=== PATIENT | female | born 2000 | race Caucasian/White ===

== ENCOUNTER 2020-01-04 14:09 | Emergency (ER) | payer OTHER ==
[~2020-01-04] VITALS: Ht 165.1 cm; Wt 68.0 kg
[~2020-01-04 14:09] MED LIST: ALBU0.0939; IBUP100S69 PO
[2020-01-04 14:15] VITALS: BP 129/86
[2020-01-04 15:14] VITALS: BP 133/80
== END 2020-01-04 15:15 | disposition home or self-care (01) ==
LOC: MED 14:09
DX: S00.93XA Contusion of unspecified part of head, initial encounter (principal); J45.909 Unspecified asthma, uncomplicated; Z79.899 Other long term (current) drug therapy; Y04.2XXA Assault by strike against or bumped into by another person, initial encounter; Y93.89 Activity, other specified; Y92.89 Other specified places as the place of occurrence of the external cause; Y99.8 Other external cause status
CPT/HCPCS: 99282

== ENCOUNTER 2020-08-03 17:10 | Emergency (ER) | payer OTHER ==
[~2020-08-03] VITALS: Ht 170.2 cm; Wt 108.0 kg
[2020-08-03 17:15] VITALS: BP 131/72
--- NOTE | 2020-08-03 17:39 | NUR ---
Patient ambulated to bed 3. RN evaluating the patient at bedside.
--- NOTE | 2020-08-03 17:40 | NUR ---
SRINIVASAN WONG AT BEDSIDE EXAMINING PT
--- NOTE | 2020-08-03 17:53 | NUR ---
LAB AT BEDSIDE
[2020-08-03 18:04] LABS: BASOPHILS # (AUTO) 0.1 K/uL (0.00-0.22); BASOPHILS % (AUTO) 1.1 % (0.0-2.0); EOSINOPHILS # (AUTO) 0.1 K/uL (0-0.4); EOSINOPHILS % (AUTO) 1.6 % (0.0-4.0); HEMATOCRIT 42.9 % (36-48); LYMPHOCYTES # (AUTO) 2.9 K/uL (2.5-16.5); MEAN CORPUSCULAR HEMOGLOBIN 31 pg (27-31); MEAN CORPUSCULAR HGB CONC 35 g/dL (33-37); MEAN CORPUSCULAR VOLUME 89.8 fL (80-94); MONOCYTES # (AUTO) 0.6 K/uL (0.8-1.0); MONOCYTES % (AUTO) 7.6 % (1.7-9.3); NEUTROPHILS # (AUTO) 4.4 K/uL (1.8-7.7); NEUTROPHILS % (AUTO) 53.7 % (42.2-75.2); PLATELET COUNT (AUTO) 310 K/uL (140-450); RED BLOOD CELL COUNT(AUTO) 4.78 MIL/uL (4.20-5.40); RED CELL DISTRIBUTION WIDTH 12.9 % (11.6-13.7); WHITE BLOOD COUNT (AUTO) 8.1 K/uL (4.5-11.0)
--- NOTE | 2020-08-03 18:10 | NUR ---
GRISEL SWAB COLLECTED AND SENT TO LAB, HANDED TO ODIN ZAMBRANO
--- NOTE | 2020-08-03 18:11 | NUR ---
19 Y/O FEMALE C/O COUGH SINCE YESTERDAY WAS SEEN AT URGENT CARE. PT STATES YELLOW SCLERA AND SKIN. DRY COUGH NOTED. LUNG SOUNDS CLEAR. PT DENIES ANY PAIN. MEDHX- NONE NKA
--- NOTE | 2020-08-03 18:11 | NUR ---
boiler service technician at bedside.
[2020-08-03 18:45] LABS: ANION GAP 14.7 (8-16); ASPARTATE AMINOTRANSFERASE 10 U/L (15-37); CARBON DIOXIDE 24.3 mmol/L (21-32); CHLORIDE 106 mmol/L (98-107); CREATININE 0.8 mg/dL (0.6-1.3); GFR ARICAN-AMERICAN 119 mL/min (>90); GLUCOSE 144 mg/dL (74-106); LIPASE 92 U/L (73-393); SODIUM SERUM 141 mmol/L (136-145); TOTAL BILIRUBIN 0.5 mg/dL (0.0-1.0); UREA NITROGEN, BLOOD 12 mg/dL (7-18)
[2020-08-03] MEDS ORDERED: BENZ-196 PO (18:55)
[2020-08-03 19:00] VITALS: BP 131/72
--- NOTE | 2020-08-03 19:00 | NUR ---
Patient discharged with v/s stable. Written and verbal after care instructions given and explained. Patient alert, oriented and verbalized understanding of instructions. Ambulatory with steady gait. All questions addressed prior to discharge. ID band removed. Patient advised to follow up with PMD. Rx of SIXTO GRADY given. Patient educated on indication of medication including possible reaction and side effects. Opportunity to ask questions provided and answered.
== END 2020-08-03 19:00 | disposition home or self-care (01) ==
LOC: MED 17:10
DX: B34.9 Viral infection, unspecified (principal); J45.909 Unspecified asthma, uncomplicated; Z20.822 Contact with and (suspected) exposure to COVID-19
CPT/HCPCS: 36415; 71045; 80053; 81002; 81025; 83690; 85025; 87426; 99284; G0482